=== PATIENT | male | born 1970 | race Caucasian/White ===

== ENCOUNTER 2017-07-09 13:49 | Observation (INO) | payer OTHER ==
[2017-07-09] VITALS (8 sets, daily range): BP systolic 96–139; BP diastolic 66–88
[~2017-07-09] VITALS: Ht 182.9 cm; Wt 71.0 kg
--- NOTE | ~2017-07-09 | EKG ---
[address] [address] ELECTROCARDIOGRAM REPORT Name: LAVERN JENNINGS Room #: 211-P ADM IN M.R.#: [id number] Admission: 07/09/17 Attend Phys: Best Watkins MD Discharge: Date of : 68 Report #: [id number] THIS REPORT FOR: //name// [facility] Test Date: 2017-07-09 Test Time: 20:08:22 Pat Name: LAVERN JENNINGS Department: Room: 211 P Gender: M Electron Gun Assembler: Paresh BYNUM : 1970 Requested By: Best Watkins Order Number: [id number] MD: Clayton Patiño Measurements Intervals [place] Rate: 58 P: 53 CA: 115 QRS: 53 QRSD: 98 T: 48 QT: 432 QTc: 425 Interpretive Statements Sinus bradycardia Otherwise no significant abnormality Compared to ECG 01/01/2013 16:56:09 No significant changes Electronically Signed On 07-10-2017 7:52:08 COMPOSITION TILE LAYER by Clayton Patiño [email or web address] <ELECTRONICALLY SIGNED> By: Clayton Patiño MD, [facility] 07/10/17 0752 07 07 Clayton Patiño MD, FACC /EPI
--- NOTE | ~2017-07-09 | CATHLAB ---
[facility] [address] [address] INVASIVE PROCEDURE REPORT Name: LAVERN JENNINGS Room #: 211-P [facility] IN ..#: [id number] Admission: 07/09/17 Attend Phys: Best Watkins MD Discharge: Date of : 68 Date of Service: 07/10/17 1351 Report #: [id number] THIS REPORT FOR: //name// APPROVED REPORT Patient Details Patient Status: In-Patient Room #: The patient is a 47 year-old male Event Personnel Freddie Palacios Nurse Tech, Edson Arellano RN RN, Subha Sher RN RN, Cristian Vee Greenwood, Christine RTR Monitor, Clare Powers RTR, HUMAN RESOURCES OPERATIONS MANAGER Monitor Procedures Performed Left Heart Cath w/or w/o Coronaries [id number] [facility] Indication Unstable angina , Chest pain Risk Factors Hypercholesterolemia, Coronary Artery Disease, Tobacco History () Previous Procedures/Diagnoses Previous PCI Procedure Narrative The Right Groin^ was infiltrated with 1% Lidocaine subcutaneous anesthesia. A PINNACLE 4FR Sheath #[id number] sheath was inserted into the RFA 4FR^. Coronary angiography was performed using coronary diagnostic catheters. The right coronary system was accessed and visualized with a JR4 catheter. The left coronary system was accessed and visualized with a JL4 catheter. The left ventricle was accessed and visualized with a PIGTAIL catheter. Left ventricular/Aortic Valve gradient assessed via catheter pullback. Left ventriculogram was performed in 30 degree projection. Hemostasis was obtained with manual pressure following sheath removal without any complications. The patient tolerated the procedure well and there were no complications associated with the procedure. There was no hematoma. Intraoperative Conscious Sedation Sedation start time: 9.30 Case end Time: 9.41 [facility] [address] [place] [address] INVASIVE PROCEDURE REPORT Name: LAVERN JENNINGS Room #: 211-P [facility] IN .R.#: [id number] Admission: 07/09/17 Attend Phys: Best Watkins MD Discharge: Date of : 68 Date of Service: 07/10/17 1351 Report #: [id number] Versed 1 mg Fluoro Time: 2.56 minutes Dose: 446 mGy Contrast Type and Amount: Omnipaque 100 ml Coronary Angiography The patient's coronary anatomy is right dominant. Diagnostic Cath Left Main Patent vessel, with no flow-limiting lesions. LAD There is mild diffuse disease in the mid segment, 20%. Diagonal 1 Mild disease in the proximal segment, 20%. Circumflex There is a stent in the proximal segment, patent with mild restenosis, 20%. OM1 Patent vessel, with no flow-limiting lesions. Right Coronary Dominant vessel with mild disease in the proximal segment, 20%. R PDA Small-caliber vessel, with no flow-limiting lesions. RPLV Small-caliber vessel, with no flow-limiting lesions. Left Ventriculography The left ventricle is normal in size with low-normal contractility. The left ventricular ejection fraction is estimated to be 50%. Hemodynamics The aortic pressure is 110/60 mmHg with a mean of 77 mmHg. There was no gradient across the aortic valve upon pullback. Pullback from the left ventricle to the aorta revealed no gradient across the aortic valve. Conclusion 1. Patent stent in the proximal left circumflex artery with mild restenosis. 2. Mild disease in the LAD and RCA. 3. Borderline lownormal LV systolic function. 4. Recommend medical therapy. <ELECTRONICALLY SIGNED> By: Freddie Palacios MD 07/10/17 1351 1351 1351 Freddie Palacios MD /INF
--- NOTE | ~2017-07-09 | EKG ---
[address] [address] ELECTROCARDIOGRAM REPORT Name: LAVERN JENNINGS Room #: 211-P ADM IN M.R.#: [id number] Admission: 07/09/17 Attend Phys: Best Watkins MD Discharge: Date of : 68 Report #: [id number] THIS REPORT FOR: //name// [facility] Test Date: 2017-07-10 Test Time: 06:20:11 Pat Name: LAVERN JENNINGS Department: Room: 211 P Gender: M Sculpture Instructor: MIKE : 1970 Requested By: Freddie Palacios Order Number: [id number] MD: Clayton Patiño Measurements Intervals [place] Rate: 47 P: 66 ND: 118 QRS: 59 QRSD: 99 T: 63 QT: 455 QTc: 403 Interpretive Statements Sinus bradycardia Borderline short ND interval Compared to ECG 01/01/2013 16:56:09 No significant change was found Electronically Signed On 07-10-2017 7:57:22 BROADCAST CHIEF ENGINEER by Clayotn Patiño [email or web address] <ELECTRONICALLY SIGNED> By: Clayton Patiño MD, [facility] 07/10/17 0757 0620 9 Clayton Patiño MD, FACC /EPI
--- NOTE | ~2017-07-09 | EKG ---
[address] [address] ELECTROCARDIOGRAM REPORT Name: LAVERN JENNINGS Room #: 211-P ADM IN M.R.#: [id number] Admission: 07/09/17 Attend Phys: Best Watkins MD Discharge: Date of : 68 Report #: [id number] THIS REPORT FOR: //name// [facility] Test Date: 2017-07-09 Test Time: 13:54:56 Pat Name: LAVERN JENNINGS Department: Room: 211 Gender: M Bank Operations Officer: [facility] : 1970 Requested By: Nirmal Barnes Order Number: [id number] MD: Clayton Patiño Measurements Intervals [place] Rate: 87 P: 73 CA: 115 QRS: 68 QRSD: 96 T: 64 QT: 366 QTc: 441 Interpretive Statements Sinus rhythm Normal tracing Compared to ECG 01/01/2013 16:56:09 No significant changes Electronically Signed On 07-10-2017 7:48:49 FILTER WASHER AND PRESSER by Clayton Patiño [email or web address] <ELECTRONICALLY SIGNED> By: Clayton Patiño MD, [facility] 07/10/17 0748 1354 1354 Clayton Patiño MD, FACC /EPI
--- NOTE | ~2017-07-09 | HC ---
[facility] [place] [address] CONSULTATION Name: LAVERN JENNINGS Room #: 211-P [facility] IN M.R.#: [id number] Admission: 07/09/17 Attend Phys: Best Watkins MD Discharge: Date of : 68 Report #: [id number] THIS REPORT FOR: //name// CC: Yahir Watkins DATE OF SERVICE: 07/09/2017 INDICATION: Chest pain. HISTORY OF PRESENT ILLNESS: This is a 47-year-old gentleman presenting with acute onset of left-sided chest pain. He was driving this afternoon when he developed a sharp pain in his left lower chest area, radiating across to the lateral side and sometimes up into the neck area. It has been persistent for the past 6 hours in duration, on and off in intensity. He had partial relief with morphine in the ER. There is no history of fever, chills, nausea or diarrhea. At the time when the pain started, he felt diaphoretic and short of breath which has resolved. The ECG is unremarkable and 2 sets of troponin levels are negative. There is no history of PND or orthopnea. PAST MEDICAL HISTORY: CAD with stent insertion in 2012, records are unavailable. Has not followed up with a customs port director. History of anxiety, hypercholesterolemia. ALLERGIES: None. CURRENT MEDICATIONS: Include Zoloft 50 mg, Seroquel, aspirin 81 mg and Zocor 40 mg. SOCIAL HISTORY: Positive tobacco use, half a pack per day. Former drug user, but none in the past several years. FAMILY HISTORY: Negative for premature CAD. REVIEW OF SYSTEMS: A full 10-point review of systems performed. Only the pertinent positives and negatives are described in the HPI. PHYSICAL EXAMINATION: VITAL SIGNS: Blood pressure is 110/60, heart rate is 59 beats per minute. GENERAL APPEARANCE: He is a well-developed, well-nourished male in no acute respiratory distress. HEAD AND EYES: Normocephalic. Sclerae are anicteric. ENT: Oral mucosa moist. NECK: Supple. LUNGS: Clear to auscultation. CARDIAC: Regular rate and rhythm, S1, S2 positive. No murmurs or gallops. [facility] [address] [place] [address] CONSULTATION Name: LAVERN JENNINGS Room #: 211-P [facility] IN M.R.#: [id number] Admission: 07/09/17 Attend Phys: Best Watkins MD Discharge: Date of : 68 Report #: [id number] ABDOMEN: Soft, nontender. EXTREMITIES: No cyanosis, no edema. NEUROLOGIC: Alert and oriented x 3 DIAGNOSTIC DATA: ECG reveals sinus rhythm, no acute ST segment changes. EKG #2 shows no change. LABORATORY VALUES: Two sets of troponins are negative. Sodium is 140, creatinine is 1.0. White count is 9.0, hemoglobin 15.0. IMPRESSION AND PLAN: 1. Chest pain syndrome. The pain is exacerbated with deep inspiration or movement of his left upper extremity. It is not reproducible with palpation. The differential diagnosis includes musculoskeletal, pleuritic, ischemia. He reports that his pain is similar to his presentation before the stent insertion 5 years ago. However, the pain has been ongoing for at least 6 hours with no ECG changes or troponin elevation. We will proceed with a CT scan to rule out dissection and pulmonary embolism. Continue with pain control. 2. Coronary artery disease/stent insertion in 2012, continue with aspirin. Will need either a stress test or cardiac catheterization depending on his clinical course. 3. Hypercholesterolemia, continue statins. 4. Anxiety, continue with medications. <ELECTRONICALLY SIGNED> By: Freddie Palacios MD 07/10/17 0835 2112 0037 Freddie Palacios MD /nt
[~2017-07-09 13:49] MED LIST: ALEVE220 M1 PO; ALPRAZOLAM 0.50.5 M1 PO; ASPIRIN EC81 M1 PO; BACLOFEN 10 MG10 MG PO; BACTRIM DS TAB1 EACH PO; CELEXA 20 MG TA20 M1 PO; CLOPIDOGREL75 MG PO; CYCLOBENZAPRINE10 MG PO; DEPRESSION; HYDROCODON-ACE1 EAC7 PO; IBUPROFEN 200200 M1 PO; NICOTINE TRANSD21 M1 TRANSDERM; PREDNISONE 10 M10 M1 PO; SIMVASTATIN40 MG PO; ZOCOR 10 MG TAB10 MG PO
[2017-07-09 14:25] LABS: ABSOLUTE NEUTROPHILS 6.8 thou/uL (1.4-8.2); BASOPHILS 1.4 % (0.0-2.0); EOSINOPHILS 1.3 % (0.0-3.0); HEMATOCRIT 44.7 % (42.0-52.0); LYMPHOCYTES 16.7 % (24.0-44.0); MCH 31.1 pg (26.0-34.0); MCHC 33.5 g/dL (28.0-37.0); MCV 92.7 fL (80.0-100.0); MONOCYTES 4.9 % (1.0-8.0); PLATELET COUNT 297 thou/uL (150-400); POLYS 75.7 % (36.0-66.0); RBC 4.83 mil/uL (4.50-6.00); RDW 14.5 % (10.5-14.5)
[2017-07-09 14:31] LABS: ANION GAP 6 mmol/L (7-16); BUN 13 mg/dL (7-18); CALCIUM 9.3 mg/dL (8.5-10.1); CHLORIDE 105 mmol/L (98-107); CO2 29 mmol/L (21-32); GLUCOSE 115 mg/dL (74-106); POTASSIUM 4.5 mmol/L (3.5-5.1); SODIUM 140 mmol/L (136-145)
[2017-07-09 14:36] LABS: APTT 29.1 Seconds (24.5-32.8); PROTIME 10.3 Seconds (9.3-11.4)
[2017-07-09 14:40] LABS: ALBUMIN 3.8 g/dL (3.4-5.0); MAGNESIUM 2.3 mg/dL (1.8-2.4); SGOT 12 U/L (15-37); SGPT 19 U/L (30-65); TOTAL BILIRUBIN 0.5 mg/dL (<0.1-1.0); TOTAL PROTEIN 7.6 g/dL (6.4-8.2); TROPONIN-I < 0.04 ng/mL (<0.06)
[2017-07-09] MEDS ORDERED: SEROQUEL 50 MG50 MG PO (18:29)
[2017-07-09] MEDS ORDERED: SERTRALINE HCL50 MG PO (18:29)
[2017-07-10] VITALS (9 sets, daily range): BP systolic 84–121; BP diastolic 51–86
[2017-07-10 05:29] LABS: HEMATOCRIT 38.6 % (42.0-52.0); MCH 31.2 pg (26.0-34.0); MCHC 33.4 g/dL (28.0-37.0); MCV 93.6 fL (80.0-100.0); RBC 4.13 mil/uL (4.50-6.00); RDW 14.3 % (10.5-14.5); WBC 7.7 thou/uL (4.0-11.0)
[2017-07-10 05:32] LABS: HEMOGLOBIN 12.9 gm/dL (14.0-18.0)
[2017-07-10 05:35] LABS: CALCIUM 8.1 mg/dL (8.5-10.1); POTASSIUM 4.1 mmol/L (3.5-5.1)
[2017-07-10] MEDS ORDERED: CHANTIX1 EACH PO (16:50)
== END 2017-07-10 18:30 | disposition home or self-care (01) ==
LOC: ER 13:49 → 2N 15:02 → EROBS 15:02 → 2N 17:00
PROVIDERS: Emergency Medicine; Hospitalist
DX: R07.89 Other chest pain (principal); I25.10 Atherosclerotic heart disease of native coronary artery without angina pectoris; E78.00 Pure hypercholesterolemia, unspecified; E78.5 Hyperlipidemia, unspecified; J44.9 Chronic obstructive pulmonary disease, unspecified; F41.9 Anxiety disorder, unspecified; G89.29 Other chronic pain; M54.9 Dorsalgia, unspecified; F32.9 Major depressive disorder, single episode, unspecified; K21.9 Gastro-esophageal reflux disease without esophagitis; Z95.5 Presence of coronary angioplasty implant and graft; F17.210 Nicotine dependence, cigarettes, uncomplicated; Z23 Encounter for immunization
CPT/HCPCS: 10081